=== PATIENT | male | born 2000 | race Caucasian/White ===

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

== ENCOUNTER 2021-05-26 20:22 | Emergency (ER) | payer OTHER, SELFPAY ==
--- NOTE | 2021-05-26 20:29 | XRR_ITS ---
PROCEDURE INFORMATION: Exam: XR Left Ankle Exam date and time: 05/26/2021 9:01 PM Age: 20 years old Clinical indication: Swelling, leg or foot; Patient HX: Missed a step 2 days ago, now C/O bruising and swelling lateral foot/ankle; Additional info: Injury TECHNIQUE: Imaging protocol: XR Left ankle. Views: 3 or more views. COMPARISON: No relevant prior studies available. FINDINGS: There is soft tissue swelling about the ankle. No fractures identified. The ankle mortise is intact. There is a joint effusion. The talar dome and subtalar joint are normal. XR/XR ankle LT min 3V* [id number] IMPRESSION: 1. Soft tissue swelling and joint effusion. 2. No evidence of fracture.
--- NOTE | 2021-05-26 20:29 | XRR_ITS ---
PROCEDURE INFORMATION: Exam: XR Left Foot Exam date and time: 05/26/2021 9:19 PM Age: 20 years old Clinical indication: Swelling, leg or foot; Patient HX: Missed a step 2 days ago, now C/O bruising and swelling lateral foot/ankle; Additional info: Injury TECHNIQUE: Imaging protocol: XR Left foot. Views: 3 or more views. COMPARISON: CR (LOW EXM, ) 05/26/2021 9:01 PM FINDINGS: There is no evidence of fracture. The joint spaces are well maintained. There is no bony destruction. XR/XR foot LT min 3V* [id number] IMPRESSION: No evidence of fracture.
[2021-05-26 20:56] VITALS: BP 122/87; PULSE 87; RESP 18; TEMP 36.8; O2SAT 96; BMI 28.8
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
== END 2021-05-26 22:15 | disposition home or self-care (01) ==
PROVIDERS: Emergency Provider Nurse Practitioner Family
DX: S93.402A Sprain of unspecified ligament of left ankle, initial encounter (principal); S96.912A Strain of unspecified muscle and tendon at ankle and foot level, left foot, initial encounter; F17.290 Nicotine dependence, other tobacco product, uncomplicated; X50.1XXA Overexertion from prolonged static or awkward postures, initial encounter
CPT/HCPCS: 73610; 73630; 99283; E0114

== ENCOUNTER 2022-10-07 02:34 | Emergency (ER) | payer OTHER, SELFPAY ==
[2022-10-07 02:34] VITALS: BP 105/70; PULSE 115; RESP 18; TEMP 36.6; O2SAT 97; BMI 33.4
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
== END 2022-10-07 03:30 | disposition home or self-care (01) ==
PROVIDERS: Emergency Provider Emergency Medicine
DX: Z04.1 Encounter for examination and observation following transport accident (principal); S00.03XA Contusion of scalp, initial encounter; F17.290 Nicotine dependence, other tobacco product, uncomplicated; V89.2XXA Person injured in unspecified motor-vehicle accident, traffic, initial encounter
CPT/HCPCS: 70450; 71045; 99284

== ENCOUNTER 2024-02-03 12:41 | Emergency (ER) | payer MEDICAID, SELFPAY ==
[2024-02-03 12:47] VITALS: BP 126/82; PULSE 90; RESP 18; TEMP 36.4; O2SAT 99; BMI 33.4
--- NOTE | 2024-02-03 12:48 | XR_ITS ---
WS: [id number] XR shoulder RT min 2V* [id number] REASON FOR EXAM: pain FINDINGS: Humerus clavicle and scapula intact with no acute fracture identified. The acromioclavicular joint is intact and well preserved. Glenohumeral joint is intact and well preserved. XR/XR shoulder RT min 2V* [id number] IMPRESSION: No acute abnormality.
--- NOTE | 2024-02-03 13:04 | W.ED.UPPEXIN ---
HPI - Extremity Injury (Upper) General: Chief Complaint: Extremity Injury, Upper Stated Complaint: Fall R Shoulder injury Time Seen by Provider: 02/03/24 12:45 Source: patient Mode of arrival: ambulatory Limitations: no limitations History of Present Illness: Patient is a 23-year-old male presents to ED today with complaint of right shoulder pain that he sustained 2 days ago after [place] He states he landed onto the right shoulder. He has no other injuries or complaints at this time. Denies numbness, tingling, loss of sensation to the extremity. MD complaint: injury to: right and shoulder Onset (ago): day(s) (Saturday/2 days ago) Other Extremity Injury: Right: shoulder Other injuries: none Place: other ([facility]) Severity: moderate Relieving factors: immobilization Exacerbating factors: movement of extremity Context: fall Associated symptoms: Reports no associated symptoms; Denies neck pain Related Data Home Medications Medication Instructions Recorded Confirmed baclofen 5 mg tablet 5 mg PO .COMP 04/10/19 12/17/23 Previous Rx's Medication Instructions Recorded Accomodative orthotics #1 ea 02/18/20 bupropion HCl 150 mg tablet,12 hr See Rx Instructions .Route 12/17/23 sustained-release .COMPLEX #30 tabs citalopram 40 mg tablet See Rx Instructions .Route 12/17/23 .COMPLEX #30 tabs dextroamphetamine-amphetamine ER 40 mg (2 x 20 mg) PO QAM 30 days 12/17/23 20 mg 24hr capsule,extend release #60 caps (Adderall XR) dextroamphetamine-amphetamine ER 40 mg (2 x 20 mg) PO QAM 30 days 12/17/23 20 mg 24hr capsule,extend release #60 caps (Adderall XR) dextroamphetamine-amphetamine ER 40 mg (2 x 20 mg) PO QAM 30 days 12/17/23 20 mg 24hr capsule,extend release #60 caps (Adderall XR) Allergies Allergy/AdvReac Type Severity Reaction Status Date / Time adhesive tape Allergy Intermediate ALGY-Rash Verified 01/17/24 11:00 Review of Systems Musc: Reports: joint pain (R shoulder) and limited range of motion (R shoulder); Denies: neck pain, back pain, extremity pain, extremity swelling or joint swelling Neuro: Denies: headache(s), numbness in extremities or sensory changes PFSH ED PFSH: Medical History Psychiatric care 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, predominantly inattentive type Social History Smoking and tobacco/nicotine status: current every day tobacco/nicotine user e-cigarettes E-Cigarette Details: vaporizer device Quit status (tobacco/nicotine): not considering quitting Second hand smoke exposure: No Alcohol intake: current Alcohol intake frequency: holidays/special occasions only Alcohol type: beer and other Substance/Drug Use: never Physical Exam Const: COMMON NORMALS: no acute distress, no limitations, alert and well nourished GENERAL APPEARANCE: cooperative HENMT: COMMON NORMALS: normocephalic and atraumatic HEAD & SCALP: normal to inspection, normocephalic and atraumatic Neck/C-Spine: COMMON NORMALS: full ROM CERVICAL SPINE: No Cervical spine tenderness and No Paracervical muscle tenderness Back/Pelvis: COMMON NORMALS: thoracic and lumbar spine normal to inspection and no thoracic nor lumbar tenderness Extremity: COMMON NORMALS: capillary refill normal and no joint enlargement GENERAL: Yes normal exam except as noted RIGHT UPPER EXTREMITY: Yes shoulder joint (TTP R posterior shoulder) Right shoulder: Yes palpation, Yes Right shoulder joint ROM exam (limited due to pain) and Yes Right shoulder joint neurovascular exam (normal) Neuro: COMMON NORMALS: moves all extremities, no focal motor deficits and no sensory deficits noted SENSORIUM/ORIENTATION: Yes alert Course Vital Signs: Vital signs: Vital Signs Temperature 97.6 F 02/03/24 12:47 Pulse Rate 90 02/03/24 12:47 Respiratory Rate 18 02/03/24 12:47 Blood Pressure 126/82 02/03/24 12:47 Pulse Oximetry 99 02/03/24 12:47 Oxygen Delivery Me thod Room Air 02/03/24 12:47 MDM - Extremity Injury (Upper) Medical Decision Making XR unremarkable. Patient will be allowed discharge with recommendations to follow-up with primary care provider in 1 to 2 weeks if symptoms do not seem to be improving. Lab Data Radiology Impressions Shoulder X-Ray 02/03/24 12:48 IMPRESSION: No acute abnormality. All radiology interpretation(s) finalized by discharge Discharge Plan Discharge Patient Disposition: Home Clinical Impression: Injury of right shoulder Qualifiers: Encounter type: initial encounter Qualified Code(s): S49.91XA - Unspecified injury of right shoulder and upper arm, initial encounter Condition: Stable Prescriptions: No Action baclofen 5 mg tablet 5 mg PO .COMP Rx Instructions: TAKE HALF TABLET AM AND ONE FULL TABLET PM (DME) Accomodative orthotics See Rx Instructions .Route .MEDSUPPLY Qty: 1 0RF Rx Instructions: As directed dextroamphetamine-amphetamine [Adderall XR] 20 mg capsule,extended release 24hr 40 mg PO QAM 30 Days Qty: 60 0RF dextroamphetamine-amphetamine [Adderall XR] 20 mg capsule,extended release 24hr 40 mg PO QAM 30 Days Qty: 60 0RF dextroamphetamine-amphetamine [Adderall XR] 20 mg capsule,extended release 24hr 40 mg PO QAM 30 Days Qty: 60 0RF bupropion HCl 150 mg tablet sustained-release 12 hr See Rx Instructions .ROUTE .COMPLEX Qty: 30 5RF Dose Instruction: TAKE 1 TABLET BY MOUTH EVERY MORNING Rx Instructions: TAKE 1 TABLET BY MOUTH EVERY MORNING citalopram 40 mg tablet See Rx Instructions .ROUTE .COMPLEX Qty: 30 5RF Dose Instruction: TAKE 1 TABLET BY MOUTH EVERY DAY Rx Instructions: TAKE 1 TABLET BY MOUTH EVERY DAY Discharge Orders: Discharge ED (Routine); Ordered 02/03/24 Ordered By: Kayleen Mejia Coding Level of Care Code ED Group Exercise Class Instructor for Fabian Montiel
[2024-02-03 14:07] VITALS: BP 110/73; PULSE 87; O2SAT 98
== END 2024-02-03 14:08 | disposition home or self-care (01) ==
PROVIDERS: Emergency Provider Physician Assistant
DX: M25.511 Pain in right shoulder (principal); F17.290 Nicotine dependence, other tobacco product, uncomplicated
CPT/HCPCS: 73030; 99283

== ENCOUNTER 2024-02-28 23:35 | Emergency (ER) | payer MEDICAID, SELFPAY ==
[2024-02-28 23:38] VITALS: BP 117/78; PULSE 100; RESP 20; TEMP 37.2; O2SAT 98; BMI 33.0
--- NOTE | 2024-02-29 00:23 | ED_ITS ---
HPI - URI/Sore Throat General: Chief Complaint: Upper Respiratory Infection Stated Complaint: sore throat Time Seen by Provider: 02/29/24 00:14 History of Present Illness: Mr. Laguerre is a 23-year-old male that presents to the emergency department with sore throat x 2 days. Patient reports has had some rhinorrhea and postnasal drip. He has had a cough but denies productive cough. Denies fever or chills. He also reports incidental right shoulder pain. Had fallen several weeks ago and come in about 2 weeks ago for an x-ray. X-ray was negative the patient states he still having pain and needs an MRI. Related Data Home Medications Medication Instructions Recorded Confirmed baclofen 5 mg tablet 5 mg PO .COMP 04/10/19 12/17/23 Previous Rx's Medication Instructions Recorded Accomodative orthotics #1 ea 02/18/20 bupropion HCl 150 mg tablet,12 hr See Rx Instructions .Route 12/17/23 sustained-release .COMPLEX #30 tabs citalopram 40 mg tablet See Rx Instructions .Route 12/17/23 .COMPLEX #30 tabs dextroamphetamine-amphetamine ER 40 mg (2 x 20 mg) PO QAM 30 days 12/17/23 20 mg 24hr capsule,extend release #60 caps (Adderall XR) dextroamphetamine-amphetamine ER 40 mg (2 x 20 mg) PO QAM 30 days 12/17/23 20 mg 24hr capsule,extend release #60 caps (Adderall XR) dextroamphetamine-amphetamine ER 40 mg (2 x 20 mg) PO QAM 30 days 12/17/23 20 mg 24hr capsule,extend release #60 caps (Adderall XR) Allergies Allergy/AdvReac Type Severity Reaction Status Date / Time adhesive tape Allergy Intermediate ALGY-Rash Verified 01/17/24 11:00 Review of Systems General: Reports: 10 or more systems reviewed and unremarkable except in HPI and below PFSH ED PFSH: Medical History Psychiatric care 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, predominantly inattentive type Social History Smoking and tobacco/nicotine status: current every day tobacco/nicotine user e- cigarettes E-Cigarette Details: vaporizer device Quit status (tobacco/nicotine): not considering quitting Second hand smoke exposure: No Alcohol intake: current Alcohol intake frequency: holidays/special occasions only Alcohol type: beer and other Substance/Drug Use: never Physical Exam Const: COMMON NORMALS: no acute distress, patient oriented x3 and alert GENERAL APPEARANCE: cooperative ORIENTATION/CONSCIOUSNESS: Yes awake, Yes oriented to person, Yes oriented to place and Yes oriented to time HENMT: COMMON NORMALS: normocephalic and atraumatic HEAD & SCALP: normocephalic and atraumatic FACE & SINUS: normal facial exam MOUTH: Normal oral and palatal mucosa present THROAT: posterior oropharynx normal Eye: COMMON NORMALS: Equal, round and reactive pupils present, EOMs intact bilaterally, conjunctivae normal and no scleral icterus GENERAL EYE: appearance normal, both eyes and all related structures ALIGNMENT: Yes alignment normal PERIORBITAL: periorbital findings normal CONJUNCTIVA: Yes conjunctivae normal PUPIL: Yes Equal, round and reactive pupils present Neck/C-Spine: COMMON NORMALS: full ROM GENERAL: Yes normal visual inspection Lymph: LYMPHATIC: no lymphadenopathy noted Chest: COMMONS NORMALS: normal inspection of the chest Breast/axilla inspection: Yes no chest deformity, asymmetry, normal contours, no nodules, masses, tenderness Resp: COMMON NORMALS: normal respiratory effort, No retractions and No use of accessory muscles EFFORT & INSPECTION: Yes able to speak in complete sentences and Yes symmetric chest movement Cardio: COMMON NORMALS: regular rate and Peripheral pulses 2+ throughout RATE: regular rate PERIPHERAL PULSES: Peripheral pulses 2+ throughout GI: COMMON NORMALS: Normal to inspection, nondistended, normoactive bowel sounds present, Soft to palpation and non-tender INSPECTION: Yes normal to inspection PALPATION: Yes Soft to palpation RECTAL EXAM: Yes deferred Extremity: COMMON NORMALS: normal to inspection GENERAL: Yes normal exam except as noted Neuro: COMMON NORMALS: patient oriented x3 SENSORIUM/ORIENTATION: Yes alert, Yes oriented to person, Yes oriented to place and Yes oriented to time CRANIAL NERVES: Yes CN normal except as noted Psych: COMMON NORMALS: mental status grossly normal, Normal thought process present, cooperative, activity/motor behavior normal, denies homicidal ideation and denies suicidal ideation THOUGHT PROCESS: Normal thought process present Skin: COMMON NORMALS: no rashes or lesions noted, no wounds and turgor normal GENERAL SKIN EXAM: no rashes or lesions noted and turgor normal Course Vital Signs: Vital signs: Vital Signs Temperature 99.0 F 02/28/24 23:38 Pulse Rate 100 02/28/24 23:38 Respiratory Rate 20 H 02/28/24 23:38 Blood Pressure 117/78 02/28/24 23:38 Pulse Oximetry 98 02/28/24 23:38 Oxygen Delivery Me thod Room Air 02/28/24 23:38 MDM - URI/Sore Throat Medical Decision Making Patient evaluated in the emergency department today for complaints of sore throat and runny nose. Patient underwent strep swab. Negative strep swab His pharynx is red and he does appear to have enlarged tonsils with possibly a tonsillolith. Patient I discussed most pharyngitis are viral in nature. He can take throat lozenges or Tylenol as needed for pain. Patient also had complaints of right shoulder pain. He had a fall several weeks ago and came in 2 weeks ago. Underwent x-ray which was negative. Patient is requesting an MRI which I advised him we are unable to do this evening. Number advised him to follow-up with his primary care doctor for any additional diagnostics. He was disappointed but understood. Patient was cleared for discharge. Lab Data Laboratory Results Group A Strep Rapid Negative (Negative) 02/29/24 00:15 No radiology studies performed this visit Discharge Plan Discharge Patient Disposition: Home Clinical Impression: Pharyngitis, Viral infection Condition: Stable Prescriptions: No Action baclofen 5 mg tablet 5 mg PO .COMP Rx Instructions: TAKE HALF TABLET AM AND ONE FULL TABLET PM (DME) Accomodative orthotics See Rx Instructions .Route .MEDSUPPLY Qty: 1 0RF Rx Instructions: As directed dextroamphetamine-amphetamine [Adderall XR] 20 mg capsule,extended release 24hr 40 mg PO QAM 30 Days Qty: 60 0RF dextroamphetamine-amphetamine [Adderall XR] 20 mg capsule,extended release 24hr 40 mg PO QAM 30 Days Qty: 60 0RF dextroamphetamine-amphetamine [Adderall XR] 20 mg capsule,extended release 24hr 40 mg PO QAM 30 Days Qty: 60 0RF bupropion HCl 150 mg tablet sustained-release 12 hr See Rx Instructions .ROUTE .COMPLEX Qty: 30 5RF Dose Instruction: TAKE 1 TABLET BY MOUTH EVERY MORNING Rx Instructions: TAKE 1 TABLET BY MOUTH EVERY MORNING citalopram 40 mg tablet See Rx Instructions .ROUTE .COMPLEX Qty: 30 5RF Dose Instruction: TAKE 1 TABLET BY MOUTH EVERY DAY Rx Instructions: TAKE 1 TABLET BY MOUTH EVERY DAY Discharge Orders: Discharge ED (Routine); Ordered 02/29/24 Ordered By: Bhavik Oden Discharge Diet: Advance as tolerated Discharge Activity: Resume usual activity Patient Instructions: Pharyngitis (ED), Opioid Safety, Pain Management Activity Restrictions/Additional Instructions: Please follow-up with your primary care doctor about your right shoulder pain. Please return to the emergency department as needed for new concerning or worsening symptoms Coding Level of Care Code ED Awning Hanger Helper for Fabian Montiel
[2024-02-29 00:29] LABS: Rapid Strep A Test Negative (Negative)
== END 2024-02-29 00:55 | disposition home or self-care (01) ==
PROVIDERS: Emergency Medicine; Emergency Provider Nurse Practitioner
DX: J02.9 Acute pharyngitis, unspecified (principal); B34.9 Viral infection, unspecified; F17.290 Nicotine dependence, other tobacco product, uncomplicated
CPT/HCPCS: 87081; 87880; 99283

== ENCOUNTER 2024-03-01 00:35 | Emergency (ER) | payer MEDICAID, SELFPAY ==
[2024-03-01 00:37] VITALS: BP 106/69; PULSE 90; RESP 20; TEMP 36.6; O2SAT 95; BMI 45.6
--- NOTE | 2024-03-01 01:25 | ED_ITS ---
HPI - URI/Sore Throat General: Chief Complaint: Upper Respiratory Infection Stated Complaint: throat pain cant swollow Time Seen by Provider: 03/01/24 00:38 History of Present Illness: Patient presents to the ER with complaints of sore throat pain. Patient was seen last night and where he had a rapid strep test and it was negative. Patient says his throat still hurts. Patient has not been running any fever or chills. Patient is able to swallow and eat or drink. Related Data Home Medications Medication Instructions Recorded Confirmed baclofen 5 mg tablet 5 mg PO .COMP 04/10/19 12/17/23 Previous Rx's Medication Instructions Recorded Accomodative orthotics #1 ea 02/18/20 bupropion HCl 150 mg tablet,12 hr See Rx Instructions .Route 12/17/23 sustained-release .COMPLEX #30 tabs citalopram 40 mg tablet See Rx Instructions .Route 12/17/23 .COMPLEX #30 tabs dextroamphetamine-amphetamine ER 40 mg (2 x 20 mg) PO QAM 30 days 12/17/23 20 mg 24hr capsule,extend release #60 caps (Adderall XR) dextroamphetamine-amphetamine ER 40 mg (2 x 20 mg) PO QAM 30 days 12/17/23 20 mg 24hr capsule,extend release #60 caps (Adderall XR) dextroamphetamine-amphetamine ER 40 mg (2 x 20 mg) PO QAM 30 days 12/17/23 20 mg 24hr capsule,extend release #60 caps (Adderall XR) Allergies Allergy/AdvReac Type Severity Reaction Status Date / Time adhesive tape Allergy Intermediate ALGY-Rash Verified 01/17/24 11:00 Review of Systems General: Reports: 10 or more systems reviewed and unremarkable except in HPI and below PFSH ED PFSH: Medical History Psychiatric care 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, predominantly inattentive type Social History Smoking and tobacco/nicotine status: current every day tobacco/nicotine user e- cigarettes E-Cigarette Details: vaporizer device Quit status (tobacco/nicotine): not considering quitting Second hand smoke exposure: No Alcohol intake: current Alcohol intake frequency: holidays/special occasions only Alcohol type: beer and other Substance/Drug Use: never Physical Exam Const: COMMON NORMALS: no acute distress, average body habitus, patient oriented x3, no limitations, healthy appearing, alert and well nourished HENMT: COMMON NORMALS: normocephalic, atraumatic, hearing grossly normal bilaterally, external ears normal, Normal external nose present and moist oral mucous membranes HEAD & SCALP: normocephalic and atraumatic NOSE: Normal external nose present EXTERNAL EAR: Yes external ears normal Neck/C-Spine: COMMON NORMALS: full ROM, no lymphadenopathy, supple, no meningeal signs, no JVD and Thyroid normal THYROID: Thyroid normal Chest: COMMONS NORMALS: normal inspection of the chest and normal palpation of entire chest wall Resp: COMMON NORMALS: normal respiratory effort, No retractions, No use of accessory muscles and clear to auscultation bilaterally AUSCULTATION: clear to auscultation bilaterally Cardio: COMMON NORMALS: no JVD, regular rate, regular rhythm, S1 normal heart sound present, S2 normal heart sound present, No gallops present (Cardio), No clicks present (Cardio), No murmurs present (Cardio) and No rub (Cardio) RATE: regular rate RHYTHM: regular rhythm HEART SOUNDS: S1 normal heart sound present and S2 normal heart sound present GI: COMMON NORMALS: Normal to inspection, nondistended, normoactive bowel sounds present, Soft to palpation, non-tender, No hepatosplenomegaly present and no masses PALPATION: Yes Soft to palpation and Yes No hepatosplenomegaly present Neuro: COMMON NORMALS: patient oriented x3 SENSORIUM/ORIENTATION: Yes alert MENINGEAL SIGNS: Yes no meningeal signs Course Vital Signs: Vital signs: Vital Signs Temperature 98 F 03/01/24 00:37 Pulse Rate 90 03/01/24 00:37 Respiratory Rate 20 H 03/01/24 00:37 Blood Pressure 106/69 03/01/24 00:37 Pulse Oximetry 95 03/01/24 00:37 MDM - URI/Sore Throat Medical Decision Making Reviewed note from yesterday, strep negative, send personally viscous lidocaine swish and swallow for throat pain and given 10 mg of Decadron to help with the pain and swelling. Patient be discharged home. Medical Records I reviewed the patient's medical records. Lab Data I reviewed the patient's lab results. No radiology studies performed this visit Discharge Plan Discharge Patient Disposition: Home Clinical Impression: Pharyngitis Qualifiers: Pharyngitis/tonsillitis etiology: unspecified etiology Qualified Code(s): J02.9 - Acute pharyngitis, unspecified Condition: Stable Prescriptions: No Action baclofen 5 mg tablet 5 mg PO .COMP Rx Instructions: TAKE HALF TABLET AM AND ONE FULL TABLET PM (DME) Accomodative orthotics See Rx Instructions .Route .MEDSUPPLY Qty: 1 0RF Rx Instructions: As directed dextroamphetamine-amphetamine [Adderall XR] 20 mg capsule,extended release 24hr 40 mg PO QAM 30 Days Qty: 60 0RF dextroamphetamine-amphetamine [Adderall XR] 20 mg capsule,extended release 24hr 40 mg PO QAM 30 Days Qty: 60 0RF dextroamphetamine-amphetamine [Adderall XR] 20 mg capsule,extended release 24hr 40 mg PO QAM 30 Days Qty: 60 0RF bupropion HCl 150 mg tablet sustained-release 12 hr See Rx Instructions .ROUTE .COMPLEX Qty: 30 5RF Dose Instruction: TAKE 1 TABLET BY MOUTH EVERY MORNING Rx Instructions: TAKE 1 TABLET BY MOUTH EVERY MORNING citalopram 40 mg tablet See Rx Instructions .ROUTE .COMPLEX Qty: 30 5RF Dose Instruction: TAKE 1 TABLET BY MOUTH EVERY DAY Rx Instructions: TAKE 1 TABLET BY MOUTH EVERY DAY Discharge Orders: Discharge ED (Routine); Ordered 03/01/24 Ordered By: Hima Vora Referrals: Ansley Cantrell MD [Primary Care Provider] - 1 week Patient Instructions: Pharyngitis (ED) Activity Restrictions/Additional Instructions: Your strep swab was negative from yesterday, it is felt you have a viral pharyngitis. This is due to a virus there is no antibiotics that will help treat this your body must fight this off on its own. Please take [id number] Tylenol and/or Motrin as needed for the pain. The steroid shot you were given in the ER should help with the swelling. Please follow-up with your family practice physician within next 7 days for further evaluation and haresh atment. 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
[2024-03-01] MEDS: dexamethasone 10 mg/mL INJ IM (01:30)
[2024-03-01] MEDS: lidocaine 2% viscous 15 mL UDC 5 ML TOPICAL (01:30)
== END 2024-03-01 02:08 | disposition home or self-care (01) ==
PROVIDERS: Emergency Provider Emergency Medicine; PCP Family Medicine
DX: J02.9 Acute pharyngitis, unspecified (principal); F17.290 Nicotine dependence, other tobacco product, uncomplicated
CPT/HCPCS: 96372; 99284; J1100

== ENCOUNTER → 2024-03-03 15:39 | Outpatient (BNVA) | payer MEDICAID, SELFPAY | PROVIDERS: PCP Family Medicine; Visit Provider Emergency Medicine | DX: J02.9 Acute pharyngitis, unspecified (principal) | CPT/HCPCS: 87071; 87880 ==

== ENCOUNTER → 2024-06-15 13:09 | Outpatient (BNVA) | payer OTHER, SELFPAY | PROVIDERS: PCP Family Medicine; Visit Provider Psychiatry & Neurology Psychiatry | DX: F90.0 Attention-deficit hyperactivity disorder, predominantly inattentive type (principal); F33.42 Major depressive disorder, recurrent, in full remission | CPT/HCPCS: 80061; 83036 ==